=== PATIENT | female | born 1985 | race Caucasian/White ===

== ENCOUNTER → 2017-11-18 16:02 | Outpatient (REF) | payer OTHER, SELFPAY ==
--- NOTE | 2017-11-18 15:20 | PAPFT_PTH ---
PATIENT: Elvie Horton LOC: [facility] U#:[id number] AGE/SX: 39/F ROOM: RE11/18/[address]: Koaml Miranda : 1985 BED: DIS: SPEC #: [id number] RECD: 11/18/17 17:41 STATUS: MONIQUE RELillie #: [id number] KJ: 11/18/17 15:[address]: Komal Miranda DEPT: [facility] Cytology RECD BY: Ivone Plaza ENTERED: 11/18/17 17:41 SP TYPE: PAPFT OTHR DR: Esther Ruiz APRN Tissues: 1 - CX/ENDOCX FOR PAP SMEARS Procedures: PAP THIN PREP/[facility] Screening HPV DNA PROBE Comments: [id number]
== END ==
LOC: LBN 16:02
PROVIDERS: PCP Nurse Practitioner Family; Visit Provider Obstetrics & Gynecology Gynecology
DX: Z12.4 Encounter for screening for malignant neoplasm of cervix (principal); Z11.51 Encounter for screening for human papillomavirus (HPV)
CPT/HCPCS: 88142; 87624

== ENCOUNTER 2018-01-26 16:02 | Outpatient (REF) | payer OTHER, SELFPAY ==
--- NOTE | 2018-01-26 15:40 | ENDO_PTH ---
PATIENT: Elvie Horton LOC: [facility] U#:[id number] AGE/SX: 32/F ROOM: RE01/26/[address]: Komal Miranda : 1985 BED: DIS: 01/26/2018 SPEC #: [id number] RECD: 01/27/18 12:35 STATUS: MONIQUE REQ #: [id number] KJ: 01/26/18 15:[address]: Komal Miranda DEPT: Surgical Specimen RECD BY: Ivone Plaza ENTERED: 01/27/18 12:36 SP TYPE: Endo OTHR DR: Esther Ruiz APRN Tissues: 1 - ENDOCERVICAL BX/CURRETTE Procedures: GROSS AND MICRO LEVEL 4 Comments: [id number]
== END 2018-01-26 16:22 ==
LOC: LBN 16:02
PROVIDERS: PCP Nurse Practitioner Family; Visit Provider Obstetrics & Gynecology Gynecology
DX: R87.610 Atypical squamous cells of undetermined significance on cytologic smear of cervix (ASC-US) (principal); R87.810 Cervical high risk human papillomavirus (HPV) DNA test positive
CPT/HCPCS: 88305

== ENCOUNTER 2019-02-26 02:08 | Outpatient (CLI) | payer OTHER, SELFPAY ==
[2019-02-26 10:41] LABS: Anion Gap 6.9 mmol/L (3-11); BUN 11 mg/dL (7-18); CO2 30.1 mmol/L (21.0-32.0); CREATININE 0.85 mg/dL (0.55-1.02); Calcium 9.6 mg/dL (8.5-10.1); Calculated LDL 113 mg/dL; Chloride 101 mmol/L (98-107); Cholesterol 184 mg/dL (<200); Glucose 86 mg/dL (74-106); HDL Cholesterol 64 mg/dL (40-60); Potassium 4.6 mmol/L (3.5-5.1); Sodium 138 mmol/L (136-145); TSH (W/Ref FT4) 2.72 uIU/mL (0.36-3.74); Triglyceride 36 mg/dL (<150)
[2019-02-27 11:53] LABS: HIV-1/2 Ag & Ab Screen Negative (Negative)
== END 2019-02-26 02:28 ==
PROVIDERS: PCP Nurse Practitioner Family; Visit Provider Nurse Practitioner Family
DX: Z13.220 Encounter for screening for lipoid disorders (principal); Z13.1 Encounter for screening for diabetes mellitus; Z51.81 Encounter for therapeutic drug level monitoring; Z11.4 Encounter for screening for human immunodeficiency virus [HIV]; E04.1 Nontoxic single thyroid nodule; L65.9 Nonscarring hair loss, unspecified
CPT/HCPCS: 36415; 80048; 80061; 87389; 84443

== ENCOUNTER 2019-03-09 01:22 | Outpatient (CLI) | payer OTHER, SELFPAY ==
--- NOTE | 2019-03-09 13:00 | DI.US_ITS ---
EXAM: US THYROID CLINICAL HISTORY: ! TECHNIQUE: Ultrasound performed using standard protocol. COMPARISON: No exams were available for comparison FINDINGS: The right lobe of the thyroid measures 5 x 1.2 x 1.3 cm. The left lobe measures 4.9 x 1 x 1.5 cm. T he overall thyroid echotexture is homogeneous. There is a questionable 9 x 6 x 6 millimeter isoechoi c nodule in the medial aspect of the left lobe of the thyroid. There is normal blood flow. IMPRESSION: Questionable 9 x 6 x 6 millimeter nodule in the left lobe of the thyroid. No suspicious abnormality is seen.
== END 2019-03-09 01:42 ==
PROVIDERS: PCP Nurse Practitioner Family; Visit Provider Nurse Practitioner Family
DX: E04.1 Nontoxic single thyroid nodule (principal)
CPT/HCPCS: 76536

== ENCOUNTER 2019-05-04 11:40 | Outpatient (REF) | payer OTHER, SELFPAY ==
--- NOTE | 2019-05-04 11:30 | PAPFT_PTH ---
PATIENT: Elvie Horton LOC: [facility] U#:[id number] AGE/SX: 33/F ROOM: RE05/04/[address]: COLE Dee : 1985 BED: DIS: 05/04/2019 SPEC #: [id number] RECD: 05/04/19 13:00 STATUS: MONIQUE RELillie #: [id number] KJ: 05/04/19 11:[address]: Nazanin Huerta DEPT: [facility] Cytology RECD BY: Ivone Plaza ENTERED: 05/04/19 13:00 SP TYPE: PAPFT OTHR DR: Sophia Carrillo APRN Tissues: 1 - CX/ENDOCX FOR PAP SMEARS Procedures: PAP THIN PREP/[facility] Screening HPV DNA PROBE Comments: [id number]
[2019-05-05 13:19] LABS: Chlamydia Result Negative (Negative); GC Result Negative (Negative)
== END 2019-05-04 12:00 ==
LOC: LBN 11:40
PROVIDERS: PCP Nurse Practitioner Adult Health; Visit Provider Nurse Practitioner Family
DX: Z11.3 Encounter for screening for infections with a predominantly sexual mode of transmission (principal); Z12.4 Encounter for screening for malignant neoplasm of cervix
CPT/HCPCS: 87491; 87591; 88142; 87624

== ENCOUNTER 2020-05-16 08:59 | Outpatient (REF) | payer OTHER, SELFPAY ==
--- NOTE | 2020-05-16 08:30 | PAPFT_PTH ---
PATIENT: Elvie Horton LOC: [facility] U#:[id number] AGE/SX: 34/F ROOM: RE05/16/[address]: COLE Dee : 1985 BED: DIS: 05/16/2020 SPEC #: [id number] RECD: 05/16/20 12:52 STATUS: MONIQUE RELillie #: [id number] KJ: 05/16/20 08:[address]: Nazanin Huerta DEPT: [facility] Cytology RECD BY: Ivone Plaza ENTERED: 05/16/20 12:53 SP TYPE: PAPFT OT DR: Sophia Carrillo APRN Tissues: 1 - CX/ENDOCX FOR PAP SMEARS Procedures: PAP THIN PREP/[facility] Screening HPV DNA PROBE Comments: [id number]
[2020-05-17 16:24] LABS: Chlamydia Result Negative (Negative); GC Result Negative (Negative)
== END 2020-05-16 09:00 | disposition home or self-care (01) ==
LOC: LBN 08:59
PROVIDERS: PCP Nurse Practitioner Adult Health; Visit Provider Nurse Practitioner Family
DX: Z11.3 Encounter for screening for infections with a predominantly sexual mode of transmission (principal); Z12.4 Encounter for screening for malignant neoplasm of cervix; Z11.51 Encounter for screening for human papillomavirus (HPV)
CPT/HCPCS: 87491; 87591; 88142; 87624

== ENCOUNTER 2020-12-12 03:12 | Outpatient (CLI) | payer OTHER, SELFPAY ==
[2020-12-12 09:17] LABS: Anion Gap 5.9 mmol/L (3-11); BUN 15 mg/dL (7-18); CO2 28.1 mmol/L (21.0-32.0); CREATININE 0.8 mg/dL (0.55-1.02); Calcium 9.4 mg/dL (8.5-10.1); Chloride 104 mmol/L (98-107); Glucose 89 mg/dL (74-106); Sodium 138 mmol/L (136-145); TSH (W/Ref FT4) 3.67 uIU/mL (0.36-3.74)
== END 2020-12-12 03:13 | disposition home or self-care (01) ==
LOC: LBO 03:12
PROVIDERS: PCP Nurse Practitioner Adult Health; Visit Provider Nurse Practitioner Adult Health
DX: E04.1 Nontoxic single thyroid nodule (principal); Z51.81 Encounter for therapeutic drug level monitoring; Z00.00 Encounter for general adult medical examination without abnormal findings
CPT/HCPCS: 36415; 80048; 84443

== ENCOUNTER 2021-07-24 12:50 | Outpatient (REF) | payer OTHER, SELFPAY ==
[2021-07-25 14:16] LABS: Chlamydia Result Negative (Negative); GC Result Negative (Negative)
== END 2021-07-24 12:51 | disposition home or self-care (01) ==
LOC: LBN 12:50
PROVIDERS: PCP Nurse Practitioner Adult Health; Visit Provider Nurse Practitioner Family
DX: Z11.3 Encounter for screening for infections with a predominantly sexual mode of transmission (principal)
CPT/HCPCS: 87491; 87591

== ENCOUNTER 2022-08-19 17:52 | Outpatient (REF) | payer OTHER, SELFPAY ==
[2022-08-21 14:48] LABS: Chlamydia Result Negative (Negative); GC Result Negative (Negative)
== END 2022-08-19 17:53 | disposition home or self-care (01) ==
LOC: LBN 17:52
PROVIDERS: PCP Nurse Practitioner Adult Health; Visit Provider Nurse Practitioner Women's Health
DX: Z11.3 Encounter for screening for infections with a predominantly sexual mode of transmission (principal)
CPT/HCPCS: 87491; 87591

== ENCOUNTER 2022-12-08 09:43 | Outpatient (REF) | payer OTHER, SELFPAY | END 2022-12-08 09:44 | disposition home or self-care (01) | LOC: LBN 09:43 | PROVIDERS: PCP Nurse Practitioner Adult Health; Visit Provider Nurse Practitioner Women's Health | DX: N76.0 Acute vaginitis (principal) | CPT/HCPCS: 87480; 87510; 87660 ==

== ENCOUNTER 2023-07-08 05:03 | Outpatient (CLI) | payer OTHER, SELFPAY ==
[2023-07-08 09:16] LABS: Anion Gap 6.8 mmol/L (3-11); BUN 14 mg/dL (7-18); CO2 28.2 mmol/L (21.0-32.0); CREATININE 0.9 mg/dL (0.55-1.02); Calcium 8.8 mg/dL (8.5-10.1); Chloride 105 mmol/L (98-107); Estimated GFR 83.92 (mL/min/1.73m2); Glucose 92 mg/dL (74-106); Potassium 4.4 mmol/L (3.5-5.1); Sodium 140 mmol/L (136-145)
== END 2023-07-08 05:04 | disposition home or self-care (01) ==
PROVIDERS: PCP Nurse Practitioner Adult Health; Visit Provider Nurse Practitioner Adult Health
DX: L70.0 Acne vulgaris (principal); Z51.81 Encounter for therapeutic drug level monitoring; Z79.899 Other long term (current) drug therapy
CPT/HCPCS: 36415; 80048

== ENCOUNTER 2023-09-01 08:59 | Outpatient (REF) | payer OTHER, SELFPAY ==
--- NOTE | 2023-09-01 08:15 | PAPFT_PTH ---
PATIENT: Elvie Horton LOC: [facility] U#:[id number] AGE/SX: 38/F ROOM: RE09/01/[address]: Michell Pelaez NP : 1985 BED: DIS: 09/01/2023 SPEC #: [id number] RECD: 09/01/23 13:08 STATUS: MONIQUE SEBASTIAN #: [id number] KJ: 09/01/23 08:[address]: Michell Pelaez NP DEPT: [facility] Cytology RECD BY: Ivone Plaza ENTERED: 09/01/23 13:08 SP TYPE: PAPFT OTHR DR: Sophia Carrillo APRN Tissues: 1 - CX/ENDOCX FOR PAP SMEARS Procedures: PAP THIN PREP/[facility] Screening HPV DNA PROBE Comments: [id number]
== END 2023-09-01 09:00 | disposition home or self-care (01) ==
LOC: LBN 08:59
PROVIDERS: PCP Nurse Practitioner Adult Health; Visit Provider Nurse Practitioner Women's Health
DX: N76.0 Acute vaginitis (principal); Z12.4 Encounter for screening for malignant neoplasm of cervix; Z00.00 Encounter for general adult medical examination without abnormal findings
CPT/HCPCS: 88142; 87480; 87510; 87624; 87660